=== PATIENT | male | born 2000 | race African-American/Black ===

== ENCOUNTER 2021-03-01 01:23 | Emergency (ER) | payer BC ==
[~2021-03-01] VITALS: Ht 182.9 cm; Wt 86.2 kg
--- NOTE | 2021-03-01 01:25 | NUR ---
TO ER BED 4 AMBULATORY C/O LEFT TESTICULAR PAIN SINCE 1699. PT DENIES TRAUMA. PT AAOX4 NO ACUTE DISTRESS NOTED, RESP EVEN AND UNLABORED. ER MD AT BEDSIDE TO EVAL PT WITH ORDERS RECEIVED. WILL CARRY OUT ORDERS.
--- NOTE | 2021-03-01 01:25 | NUR ---
URINE SAMPLE COLLECTED AND SENT TO LAB.
[2021-03-01 02:04] LABS: BILIRUBIN,URINE NEGATIVE (NEGATIVE); COLOR,URINE YELLOW (YELLOW); LEUKOCYTE ESTERASE ,URINE NEGATIVE (NEGATIVE); NITRITE, URINE NEGATIVE (NEGATIVE); PROTEIN,URINE NEGATIVE (NEGATIVE); UGLUCOSE NEGATIVE (NEGATIVE)
[2021-03-01 02:05] LABS: RBC,URINE 0-2 /HPF (0-2); WBC,URINE 0-2 /HPF (0-3)
[2021-03-01 02:06] LABS: BACTERIA,URINE Few /HPF (None Seen); SQUAMOUS EPITHELIAL CELL,UR Few /HPF (None Seen); URINE AMORPHOUS PHOSPHATES Few /HPF (None Seen)
[2021-03-01] MEDS ORDERED: IBUP-1957 PO (02:13)
--- NOTE | 2021-03-01 02:38 | NUR ---
finished with ultrasound procedure
[2021-03-01] MEDS ORDERED: DOXY-326 PO (02:48)
[2021-03-01] MEDS ORDERED: AMOX-430 PO (02:48)
--- NOTE | 2021-03-01 02:57 | NUR ---
Patient discharged to home in stable condition. Written and verbal after care instructions given. Patient verbalizes understanding of instruction and RX. Pt ambulated out of ED, VSS.
[2021-03-01 02:58] VITALS: BP 134/76
== END 2021-03-01 02:58 | disposition home or self-care (01) ==
LOC: ER 01:26
DX: N45.1 Epididymitis (principal); Z88.8 Allergy status to other drugs, medicaments and biological substances; Z79.899 Other long term (current) drug therapy
CPT/HCPCS: 76870-TC; 81001